=== PATIENT | male | born 1935 | race African-American/Black ===

== ENCOUNTER 2018-03-04 10:23 | Inpatient (IN) | payer MEDICARE, OTHER ==
[2018-03-04 10:53] LABS: ADD MAN DIFF? NO
[2018-03-04 11:05] LABS: ADD UMIC NO; UR ASCORBIC ACID NEGATIVE (NEGATIVE); UR BILIRUBIN (Dip) NEGATIVE (NEGATIVE); UR BLOOD (Dip) NEGATIVE (NEGATIVE); UR CLARITY CLEAR (CLEAR); UR COLOR AMBER (YELLOW); UR GLUCOSE (Dip) NEGATIVE (NEGATIVE); UR KETONES (Dip) NEGATIVE (NEGATIVE); UR LEUKOCYTE ESTERASE (Dip) NEGATIVE Leu/ul (NEGATIVE); UR NITRITE (Dip) NEGATIVE (NEGATIVE); UR SPECIFIC GRAVITY (Dip) 1.016 (1.003-1.030); UR TOTAL PROTEIN (Dip) NEGATIVE (NEGATIVE); UR UROBILINOGEN (Dip) 1+ mg/dL (NEGATIVE)
[2018-03-04 11:06] LABS: ABNORMAL IP MESSAGE 1; BASOPHIL # 0.1 10^3/ul (0.0-0.1); BASOPHILS % 1.3 % (0.0-2.0); EOSINOPHILS % 0.3 % (0.0-7.0); HEMATOCRIT 41.4 % (42.0-52.0); HEMOGLOBIN 12.3 g/dl (14.0-18.0); LYMPHOCYTES # 0.8 10^3/ul (0.8-2.9); LYMPHOCYTES % 10.7 % (15.0-51.0); MEAN CORPUSCULAR HEMOGLOBIN 29.4 pg (29.0-33.0); MEAN CORPUSCULAR HGB CONC 29.7 g/dl (32.0-37.0); MEAN CORPUSCULAR VOLUME 98.8 fl (82.0-101.0); MEAN PLATELET VOLUME 10.1 fl (7.4-10.4); MONOCYTE # 1.6 10^3/ul (0.3-0.9); MONOCYTES % 21.7 % (0.0-11.0); NEUTROPHILS % 65.6 % (39.0-77.0); PLATELET COUNT 241 10^3/UL (140-415); POSITIVE DIFF @See below; RED BLOOD COUNT 4.19 10^6/ul (4.70-6.10); RED CELL DISTRIBUTION WIDTH 17.2 % (11.5-14.5)
[2018-03-04 11:06] LABS: WHITE BLOOD COUNT 7.6 10^3/ul (4.8-10.8)
[2018-03-04 11:18] LABS: ALANINE AMINOTRANSFERASE 33 IU/L (13-69); ALBUMIN 3.9 g/dl (3.3-4.9); ALKALINE PHOSPHATASE 91 IU/L (42-121); ANION GAP 20 (8-16); ASPARTATE AMINO TRANSFERASE 47 IU/L (15-46); BILIRUBIN,INDIRECT 0.7 mg/dl (0-1.1); BLOOD UREA NITROGEN 34 mg/dl (7-20); CALCIUM 9.2 mg/dl (8.4-10.2); CARBON DIOXIDE 28 mmol/L (21-31); CHLORIDE 94 mmol/L (97-110); CREATININE 2.31 mg/dl (0.61-1.24); GLUCOSE 95 mg/dl (70-220); LIPASE 78 U/L (23-300); POTASSIUM 4.8 mmol/L (3.5-5.1); SODIUM 137 mmol/L (135-144); TOTAL PROTEIN 7.8 g/dl (6.1-8.1)
[2018-03-04 11:29] LABS: TROPONIN-I 0.109 ng/ml (0.000-0.120)
[2018-03-04] MEDS: FUROSEMIDE 40 MG INJ IV ×2 (11:30→17:19)
[2018-03-04 11:33] LABS: AMMONIA 99 umol/l (9-30)
[2018-03-04 11:39] LABS: INR 1.32; PROTIME 16.6 Sec (11.9-14.9); PT RATIO 1.3
[2018-03-04 11:40] LABS: PARTIAL THROMBOPLASTIN TIME 39.5 Sec (25.0-35.0)
[2018-03-04] MEDS: LACTULOSE 30ML CUP PO ×2 (13:13→22:34)
[2018-03-04] MEDS: ASPIRIN 81 MG TAB PO (13:13)
[2018-03-04] MEDS ORDERED: HYDROCODONE/APAP (5/325) TAB PO (14:00)
[2018-03-04] MEDS ORDERED: NACL 0.9% 3 ML SYG IV (14:00)
[2018-03-04] MEDS ORDERED: morphine 2 MG INJ IV (14:00)
[2018-03-04] MEDS ORDERED: ONDANSETRON 4 MG INJ IV (14:00)
[2018-03-04] MEDS ORDERED: DOCUSATE SODIUM 100 MG CAP PO (14:00)
[2018-03-04] MEDS ORDERED: ACETAMINOPHEN 325 MG TAB PO (14:00)
[2018-03-04] MEDS: ATORVASTATIN 40 MG TAB PO (21:12)
[2018-03-05] MEDS: LACTULOSE 30ML CUP PO ×3 (05:44→21:20)
[2018-03-05] MEDS: FUROSEMIDE 40 MG INJ IV ×2 (05:44→16:59)
[2018-03-05] MEDS: POTASSIUM CHLORIDE (SR) 8 MEQ CAP PO (08:39)
[2018-03-05] MEDS: ASPIRIN (EC) 325 MG TAB PO (08:40)
[2018-03-05] MEDS: ENOXAPARIN 30 MG/0.3 ML SYG SC (08:46)
[2018-03-05 09:00] LABS: ADD MAN DIFF? NO; HAAIG REFLEX REFLEX FILED
[2018-03-05 09:15] LABS: WHITE BLOOD COUNT 7.5 10^3/ul (4.8-10.8)
[2018-03-05 09:15] LABS: ABNORMAL IP MESSAGE 1; BASOPHIL # 0.1 10^3/ul (0.0-0.1); BASOPHILS % 1.3 % (0.0-2.0); EOSINOPHILS # 0.1 10^3/ul (0.0-0.5); EOSINOPHILS % 1.5 % (0.0-7.0); HEMATOCRIT 42.6 % (42.0-52.0); HEMOGLOBIN 12.6 g/dl (14.0-18.0); LYMPHOCYTES # 1.1 10^3/ul (0.8-2.9); LYMPHOCYTES % 14.5 % (15.0-51.0); MEAN CORPUSCULAR HEMOGLOBIN 29.2 pg (29.0-33.0); MEAN CORPUSCULAR HGB CONC 29.6 g/dl (32.0-37.0); MEAN CORPUSCULAR VOLUME 98.8 fl (82.0-101.0); MEAN PLATELET VOLUME 10.4 fl (7.4-10.4); NEUTROPHIL # 4.1 10^3/ul (1.6-7.5); PLATELET COUNT 217 10^3/UL (140-415); POSITIVE DIFF @See below; RED BLOOD COUNT 4.31 10^6/ul (4.70-6.10); RED CELL DISTRIBUTION WIDTH 17.2 % (11.5-14.5)
[2018-03-05 09:20] LABS: MONOCYTES % 27.2 % (0.0-11.0)
[2018-03-05 09:23] LABS: HEMOGLOBIN A1C 6.1 % (0-5.9)
[2018-03-05 09:32] LABS: AMMONIA 52 umol/l (9-30)
[2018-03-05 09:42] LABS: ANION GAP 19 (8-16); BLOOD UREA NITROGEN 42 mg/dl (7-20); CALCIUM 9.1 mg/dl (8.4-10.2); CARBON DIOXIDE 29 mmol/L (21-31); CHLORIDE 92 mmol/L (97-110); CHOL/HDL RATIO 3.6 RATIO; CHOLESTEROL 188 mg/dl (100-200); CREATININE 2.48 mg/dl (0.61-1.24); GLUCOSE 104 mg/dl (70-220); HDL CHOLESTEROL 51 mg/dl (31-75); LDL CHOLESTEROL,CALCULATED 119 mg/dl; MAGNESIUM 2.2 mg/dl (1.7-2.5); PHOSPHORUS 6.7 mg/dl (2.5-4.9); POTASSIUM 4.5 mmol/L (3.5-5.1); SODIUM 135 mmol/L (135-144); TRIGLYCERIDES 92 mg/dl (0-149)
[2018-03-05 09:44] LABS: B-TYPE NATRIURETIC PEPTIDE 12500 PG/ML (0-450)
[2018-03-05] MEDS ORDERED: OXYCODONE/ACETAMINOPHEN (5/325) TAB PO (11:00)
[2018-03-05] MEDS ORDERED: morphine LIQ (10 MG/5 ML) CUP PO (19:30)
[2018-03-05] MEDS: ATORVASTATIN 40 MG TAB PO (21:19)
[2018-03-05] MEDS: TAMSULOSIN (SR) 0.4 MG CAP PO (21:19)
[2018-03-05 23:53] LABS: HEPATITIS B SURFACE ANTIGEN NEGATIVE (NEGATIVE)
[2018-03-06 00:11] LABS: HEPATITIS B CORE ANTIBODY REACTIVE (NEGATIVE); HEPATITIS C VIRAL ANTIBODY NEGATIVE (NEGATIVE)
[2018-03-06] MEDS: FUROSEMIDE 40 MG INJ IV ×2 (06:17→18:04)
[2018-03-06] MEDS: LACTULOSE 30ML CUP PO ×3 (06:17→22:08)
[2018-03-06 06:48] LABS: AMMONIA 38 umol/l (9-30)
[2018-03-06 07:10] LABS: ANION GAP 16 (8-16); BLOOD UREA NITROGEN 46 mg/dl (7-20); CARBON DIOXIDE 33 mmol/L (21-31); CHLORIDE 92 mmol/L (97-110); CREATININE 1.99 mg/dl (0.61-1.24); GLUCOSE 124 mg/dl (70-220); POTASSIUM 3.8 mmol/L (3.5-5.1); SODIUM 137 mmol/L (135-144)
[2018-03-06] MEDS: POTASSIUM CHLORIDE (SR) 8 MEQ CAP PO (08:50)
[2018-03-06] MEDS: ASPIRIN (EC) 325 MG TAB PO (08:50)
[2018-03-06] MEDS: ENOXAPARIN 30 MG/0.3 ML SYG SC (08:52)
[2018-03-06] MEDS: TAMSULOSIN (SR) 0.4 MG CAP PO (20:30)
[2018-03-06] MEDS: ATORVASTATIN 40 MG TAB PO (20:30)
[2018-03-07] MEDS: FUROSEMIDE 40 MG INJ IV ×2 (06:26→18:50)
[2018-03-07] MEDS: LACTULOSE 30ML CUP PO ×3 (06:26→22:11)
[2018-03-07 09:37] LABS: ANION GAP 14 (8-16); BLOOD UREA NITROGEN 35 mg/dl (7-20); CALCIUM 9.2 mg/dl (8.4-10.2); CARBON DIOXIDE 32 mmol/L (21-31); CHLORIDE 96 mmol/L (97-110); CREATININE 1.31 mg/dl (0.61-1.24); GLUCOSE 123 mg/dl (70-220); POTASSIUM 3.6 mmol/L (3.5-5.1); SODIUM 138 mmol/L (135-144)
[2018-03-07 09:45] LABS: AMMONIA 41 umol/l (9-30)
[2018-03-07] MEDS: ENOXAPARIN 30 MG/0.3 ML SYG SC (09:51)
[2018-03-07] MEDS: traMADol 50 MG TAB PO ×2 (09:52→14:05)
[2018-03-07] MEDS: ASPIRIN (EC) 325 MG TAB PO (09:53)
[2018-03-07] MEDS: POTASSIUM CHLORIDE (SR) 8 MEQ CAP PO (09:53)
[2018-03-07] MEDS: TAMSULOSIN (SR) 0.4 MG CAP PO (21:00)
[2018-03-07] MEDS: ATORVASTATIN 40 MG TAB PO (22:09)
[2018-03-07 23:44] LABS: Allen Test ACCEPTAB; Arterial Base Excess 8.1 mmol/L (-3.0-3); Arterial Blood Gas Oxygen Sat 99.3 mmHG (95.0-100.0); Arterial COHb 0.4 % (0.0-3.0); Arterial Fraction of Oxyhgb 98.6 % (93.0-99.0); Arterial HCO3 36.4 mmol/L (22.0-26.0); Arterial MetHb 0.3 % (0.0-1.5); Arterial Total Hemglobin 12.7 g/dl (12.0-18.0); Arterial pCO2 70.3 mmhg (35-45); MODE NASAL CANNULA; Site Right Radial
[2018-03-07] MEDS: FLUTICASONE/VILANTEROL 100-25 INH (23:45)
[2018-03-08] MEDS: ALBUTEROL/IPRATROPIUM (NEB) 3 ML AMP HHN (00:28)
[2018-03-08] MEDS: LACTULOSE 30ML CUP PO ×3 (05:49→21:55)
[2018-03-08] MEDS: METOLAZONE 2.5 MG TAB PO (05:49)
[2018-03-08] MEDS: FUROSEMIDE 40 MG INJ IV ×2 (05:49→17:33)
[2018-03-08 07:49] LABS: ADD MAN DIFF? NO
[2018-03-08 08:01] LABS: ABNORMAL IP MESSAGE 1; BASOPHILS % 0.5 % (0.0-2.0); EOSINOPHILS # 0.1 10^3/ul (0.0-0.5); HEMATOCRIT 37.7 % (42.0-52.0); HEMOGLOBIN 11.3 g/dl (14.0-18.0); LYMPHOCYTES # 0.7 10^3/ul (0.8-2.9); LYMPHOCYTES % 8.7 % (15.0-51.0); MEAN CORPUSCULAR VOLUME 96.7 fl (82.0-101.0); MEAN PLATELET VOLUME 10.2 fl (7.4-10.4); MONOCYTE # 2.2 10^3/ul (0.3-0.9); NEUTROPHILS % 62.5 % (39.0-77.0); PLATELET COUNT 206 10^3/UL (140-415); POSITIVE DIFF @See below; RED CELL DISTRIBUTION WIDTH 17.2 % (11.5-14.5)
[2018-03-08 08:26] LABS: ANION GAP 12 (8-16); BLOOD UREA NITROGEN 33 mg/dl (7-20); CALCIUM 9.2 mg/dl (8.4-10.2); CARBON DIOXIDE 37 mmol/L (21-31); CHLORIDE 97 mmol/L (97-110); GLUCOSE 123 mg/dl (70-220); POTASSIUM 3.9 mmol/L (3.5-5.1); SODIUM 142 mmol/L (135-144)
[2018-03-08] MEDS: ASPIRIN (EC) 325 MG TAB PO (08:57)
[2018-03-08] MEDS: POTASSIUM CHLORIDE (SR) 8 MEQ CAP PO (08:57)
[2018-03-08] MEDS: ENOXAPARIN 30 MG/0.3 ML SYG SC (08:58)
[2018-03-08] MEDS: ATORVASTATIN 40 MG TAB PO (20:49)
[2018-03-08] MEDS: TAMSULOSIN (SR) 0.4 MG CAP PO (20:50)
[2018-03-09] MEDS: LACTULOSE 30ML CUP PO ×3 (06:00→20:35)
[2018-03-09] MEDS: FUROSEMIDE 40 MG INJ IV ×2 (06:20→17:59)
[2018-03-09 06:29] LABS: Allen Test ACCEPTAB; Arterial Base Excess 8.1 mmol/L (-3.0-3); Arterial Blood Gas Oxygen Sat 98.5 mmHG (95.0-100.0); Arterial COHb 0.8 % (0.0-3.0); Arterial Fraction of Oxyhgb 97.3 % (93.0-99.0); Arterial HCO3 41.8 mmol/L (22.0-26.0); Arterial MetHb 0.4 % (0.0-1.5); Arterial Total Hemglobin 12.9 g/dl (12.0-18.0); Arterial pCO2 129.4 mmhg (35-45); MODE NASAL CANNULA; Site Left Radial
[2018-03-09] MEDS: METHYLPREDNISOLONE 125 MG INJ IV (07:35)
[2018-03-09] MEDS: POTASSIUM CHLORIDE (SR) 8 MEQ CAP PO (08:22)
[2018-03-09] MEDS: ASPIRIN (EC) 325 MG TAB PO (08:22)
[2018-03-09] MEDS: ENOXAPARIN 30 MG/0.3 ML SYG SC (08:37)
[2018-03-09 08:47] LABS: AADO2 Arterial 67.7 mmHg (7.0-24.0); Allen Test ACCEPTAB; Arterial Base Excess 5.2 mmol/L (-3.0-3); Arterial COHb 0.9 % (0.0-3.0); Arterial Fraction of Oxyhgb 95.8 % (93.0-99.0); Arterial HCO3 34.6 mmol/L (22.0-26.0); Arterial MetHb 0.3 % (0.0-1.5); Arterial Total Hemglobin 12.5 g/dl (12.0-18.0); Arterial pCO2 77.9 mmhg (35-45); Blood Gas IEPAP 24/8; Blood Gas PS 16; MODE MASK - BIPAP; Site Left Radial
[2018-03-09] MEDS: ALBUTEROL/IPRATROPIUM (NEB) 3 ML AMP HHN (09:33)
[2018-03-09 10:07] LABS: ADD MAN DIFF? NO
[2018-03-09 10:17] LABS: ABNORMAL IP MESSAGE 1; BASOPHILS % 0.8 % (0.0-2.0); EOSINOPHILS % 0.2 % (0.0-7.0); HEMOGLOBIN 11.8 g/dl (14.0-18.0); LYMPHOCYTES # 0.5 10^3/ul (0.8-2.9); LYMPHOCYTES % 9.6 % (15.0-51.0); MEAN CORPUSCULAR HEMOGLOBIN 29.8 pg (29.0-33.0); MEAN CORPUSCULAR HGB CONC 29.5 g/dl (32.0-37.0); MEAN PLATELET VOLUME 10.4 fl (7.4-10.4); MONOCYTE # 0.6 10^3/ul (0.3-0.9); MONOCYTES % 11.8 % (0.0-11.0); NEUTROPHIL # 3.9 10^3/ul (1.6-7.5); NEUTROPHILS % 77.4 % (39.0-77.0); PLATELET COUNT 193 10^3/UL (140-415); POSITIVE DIFF @See below; RED BLOOD COUNT 3.96 10^6/ul (4.70-6.10); RED CELL DISTRIBUTION WIDTH 17.1 % (11.5-14.5)
[2018-03-09 10:21] LABS: AMMONIA 46 umol/l (9-30)
[2018-03-09 10:41] LABS: ALANINE AMINOTRANSFERASE 35 IU/L (13-69); ALBUMIN 3.6 g/dl (3.3-4.9); ALBUMIN/GLOBULIN RATIO 1.05; ALKALINE PHOSPHATASE 99 IU/L (42-121); ANION GAP 11 (8-16); ASPARTATE AMINO TRANSFERASE 67 IU/L (15-46); BILIRUBIN,INDIRECT 0.3 mg/dl (0-1.1); BILIRUBIN,TOTAL 0.4 mg/dl (0.2-1.3); BLOOD UREA NITROGEN 38 mg/dl (7-20); CALCIUM 9.5 mg/dl (8.4-10.2); CARBON DIOXIDE 33 mmol/L (21-31); CHLORIDE 97 mmol/L (97-110); CREATININE 1.51 mg/dl (0.61-1.24); GLUCOSE 127 mg/dl (70-220); POTASSIUM 4.5 mmol/L (3.5-5.1); SODIUM 136 mmol/L (135-144)
[2018-03-09] MEDS ORDERED: BISACODYL 10 MG SUPP PR (18:30)
[2018-03-09] MEDS ORDERED: ATROPINE 1% 5 ML OPH SL (18:30)
[2018-03-09] MEDS: LORAZEPAM 2 MG INJ IV (23:49)
[2018-03-10] MEDS: LACTULOSE 30ML CUP PO ×2 (06:37→14:00)
[2018-03-10] MEDS: FUROSEMIDE 40 MG INJ IV (06:38)
[2018-03-10] MEDS: POTASSIUM CHLORIDE (SR) 8 MEQ CAP PO (09:52)
[2018-03-10] MEDS: LORAZEPAM 2 MG INJ IV ×3 (12:37→22:35)
[2018-03-10] MEDS: morphine 2 MG INJ IV (18:18)
[2018-03-11] MEDS: morphine 2 MG INJ IV (12:35)
[2018-03-11] MEDS: LORAZEPAM 2 MG INJ IV (12:36)
[2018-03-11] MEDS: morphine 10 MG INJ IV (14:24)
[2018-03-11] MEDS: morphine (DRIP) 100 MG/100 ML 100 ML IV (14:47)
[2018-03-12] MEDS: morphine (DRIP) 100 MG/100 ML 100 ML IV (06:45)
== END 2018-03-12 13:25 | disposition expired | DRG 441 ==
LOC: E/R 10:23 → MS4 13:13
DX: K71.10 Toxic liver disease with hepatic necrosis, without coma (principal); I50.23 Acute on chronic systolic (congestive) heart failure; J96.02 Acute respiratory failure with hypercapnia; I13.0 Hypertensive heart and chronic kidney disease with heart failure and stage 1 through stage 4 chronic kidney disease, or unspecified chronic kidney disease; N17.9 Acute kidney failure, unspecified; L97.929 Non-pressure chronic ulcer of unspecified part of left lower leg with unspecified severity; I46.9 Cardiac arrest, cause unspecified; L97.919 Non-pressure chronic ulcer of unspecified part of right lower leg with unspecified severity; T40.2X1A Poisoning by other opioids, accidental (unintentional), initial encounter; N18.9 Chronic kidney disease, unspecified; T40.2X5A Adverse effect of other opioids, initial encounter; Z79.891 Long term (current) use of opiate analgesic; G89.29 Other chronic pain; I34.0 Nonrheumatic mitral (valve) insufficiency
CPT/HCPCS: 36415; 36600; 70450; 71045; 76705; 80048; 80053; 80061; 81003; 82140; 82803; 82962; 83036; 83690; 83735; 83880; 84100; 84484; 85025; 85610; 85730; 86704; 86709; 86803; 87340; 93005; 93306; 94640; 94660; 94664; 96374; 97162; 99291-25